=== PATIENT | male | born 1940 | race Caucasian/White ===

== ENCOUNTER 2023-11-03 10:57 | Emergency (ER) | payer OTHER ==
[2023-11-03 11:26] LABS: BASOPHILS PERCENT AUTO 0.3 % (0.0-1.0); HEMATOCRIT 46.7 % (40.0-54.0); HEMOGLOBIN 15.5 g/dL (14.0-18.0); LYMPHOCYTES PERCENT AUTO 20.5 % (20.5-50.1); MEAN CORPUSCULAR HEMOGLOBIN 28.7 pg (27.0-34.0); MEAN CORPUSCULAR HGB CONC 33.2 g/dL (33.0-35.0); MEAN CORPUSCULAR VOLUME 86.3 fL (80-100); NEUTROPHILS PERCENT AUTO 67.2 % (42.2-75.2); PLATELET COUNT,PLT 192 10^3/uL (150-450); RED BLOOD CELL COUNT 5.41 10^6/uL (4.6-6.2); WHITE BLOOD CELL COUNT,WBC 9.1 10^3/uL (5.0-10.0)
[2023-11-03] MEDS: Acetaminophen/HYDROcodone 325-10 MG Tab PO ONE (11:34)
[2023-11-03 11:49] LABS: ANION GAP 12.2 mEq/L (7-13); CALCIUM 9.1 mg/dL (8.5-10.1); CREATININE 1.67 mg/dL (0.70-1.30); EST CRCL DRUG DOSING (CG) 30.78 mL/min; POTASSIUM,K 4.2 mmol/L (3.5-5.1)
[2023-11-03] MEDS: methylPREDNISolone Acetate 40 MG/ML SDV IM ONE (12:25)
== END 2023-11-03 12:37 | disposition home or self-care (01) ==
LOC: DL.ED 10:57
DX: M54.42 Lumbago with sciatica, left side (principal); S86.912A Strain of unspecified muscle(s) and tendon(s) at lower leg level, left leg, initial encounter; N28.9 Disorder of kidney and ureter, unspecified; Z79.899 Other long term (current) drug therapy; Z79.84 Long term (current) use of oral hypoglycemic drugs; Z79.82 Long term (current) use of aspirin; Z88.8 Allergy status to other drugs, medicaments and biological substances; Z88.1 Allergy status to other antibiotic agents; X58.XXXA Exposure to other specified factors, initial encounter
CPT/HCPCS: 36415; 72100; 73562; 80048; 84550; 85025; 96372; 99283; A9270; J1030